=== PATIENT | female | born 1930 | race Caucasian/White ===

== ENCOUNTER → 2018-06-02 | Outpatient (CLI) | payer MEDICARE ==
--- NOTE | 2018-06-02 15:28 | Diagnostic Imaging Report ---
Exam: Head CT without contrast History: Trauma, fall Comparison studies: None Technique: Axial images were obtained from the skull base to the vertex. Coronal and sagittal images reconstructed from the axial data. Dose modulation, iterative reconstruction, and/or weight based adjustment of the mA/kV was utilized to reduce the radiation dose to as low as reasonably achievable. Radiation dose: Total DLP: 921 mGy*cm. Estimated effective dose: DLP x 0.015 Intravenous contrast: None Findings: Scalp: Mild right frontal scalp swelling Bones: No fractures, blastic or lytic lesions. Brain sulci: Mildly prominent. Ventricles: Normal in size and configuration. No hydrocephalus. Extra-axial spaces: Mildly prominent extra axial spaces of CSF density along the bifrontal convexities and anterior interhemispheric fissure, likely due to volume loss or less likely small chronic subdural hygromas without significant mass effect. A 7 mm calcification along the anterior falx may represent small calcified meningioma or dural calcification. Parenchyma: No mass, acute hemorrhage or acute or chronic cortical vascular insults. Scattered hypodensities in the supratentorial white matter are nonspecific but most compatible with chronic microvascular ischemic changes. Sellar/suprasellar region: No abnormalities. Craniocervical junction: Patent foramen magnum. No Chiari one malformation. Incidental findings: Atherosclerotic calcifications in the carotid siphons and intradural vertebral arteries.. IMPRESSION: 1. Mild right frontal scalp swelling without underlying fracture. 2. No acute intracranial abnormalities. 3. Mild generalized volume loss 4. Mild chronic microvascular ischemic changes. Signed by: Dr. Felix Ariza M.D. on 06/02/2018 3:25 PM
== END ==
LOC: CT 14:20 → EDBD 14:20
PROVIDERS: ATTEND Family Medicine
DX: S09.90XA Unspecified injury of head, initial encounter (principal); W19.XXXA Unspecified fall, initial encounter
CPT/HCPCS: 70450

== ENCOUNTER → 2018-06-04 | Outpatient (CLI) | payer MEDICARE, OTHER ==
--- NOTE | 2018-06-04 15:56 | Diagnostic Imaging Report ---
TECHNIQUE: Magnetic resonance imaging of the RIGHT SHOULDER was performed WITHOUT injected contrast. COMPARISON: None available. HISTORY: Right shoulder pain FINDINGS: MUSCLES AND TENDONS: Rotator Cuff: Tendons: Full thickness tearing of the supraspinatus and infraspinatus tendon. Deep fibers retracted up to 4 cm and superficial fibers retracted 3 cm. Muscles: Advanced atrophy of the subscapularis supraspinatus and infraspinatus. Biceps Tendon: Intra and extra articular tendinosis. GLENOHUMERAL JOINT: Glenoid Labrum: Diffuse degenerative labral tearing. Articular Cartilage: Diffuse high grade cartilage loss with areas of full-thickness erosion and subchondral cystic change. AC JOINT AND ACROMION: Mild hypertrophic degenerative changes of the acromioclavicular joint. Subacromial spur. BONE: Reactive edema within the humeral head and glenoid. No acute fracture. SOFT TISSUES: Joint communicates with the subacromial subdeltoid bursa. IMPRESSION: Full-thickness tearing of the supraspinatus and infraspinatus tendon with retraction and generalized muscle atrophy. Advanced glenohumeral degenerative arthrosis. Signed by: Dr. Alex Carlos M.D. on 06/04/2018 3:53 PM
== END ==
LOC: MRI 13:37
PROVIDERS: ATTEND Family Medicine
DX: S40.011A Contusion of right shoulder, initial encounter (principal); W01.0XXA Fall on same level from slipping, tripping and stumbling without subsequent striking against object, initial encounter; Y92.008 Other place in unspecified non-institutional (private) residence as the place of occurrence of the external cause